=== PATIENT | male | born 1965 | race Caucasian/White ===

== ENCOUNTER 2017-08-12 07:54 | Day surgery (SDC) | payer BC, OTHER ==
[2017-08-12] MEDS: NS 1,000 ML IV (08:08)
[2017-08-12] MEDS ORDERED: PROPOFOL 200 MG/20 ML VIAL As Ordered (08:41)
[2017-08-12] MEDS ORDERED: LIDOCAINE 2% INJ 100 MG/5 ML SDV (FOR ANES.) As Ordered (08:41)
== END 2017-08-12 09:30 | disposition home or self-care (01) ==
LOC: M OPP 07:54
DX: Z12.11 Encounter for screening for malignant neoplasm of colon (principal); D12.5 Benign neoplasm of sigmoid colon; Z80.42 Family history of malignant neoplasm of prostate
CPT/HCPCS: 45385

== ENCOUNTER → 2019-10-01 | Outpatient (REF) | payer OTHER ==
[2019-10-01 15:44] LABS: INFLUENZA A AMPLIFICATION POSITIVE (NEGATIVE); INFLUENZA B AMPLIFICATION NEGATIVE (NEGATIVE)
== END ==
LOC: M LAB REF 10:40
PROVIDERS: ATTEND Physician Assistant Medical
DX: R50.9 Fever, unspecified (principal)

== ENCOUNTER → 2020-05-29 | Outpatient (REF) | payer OTHER | LOC: M LAB REF 12:37 | PROVIDERS: ATTEND Nurse Practitioner Family | DX: N39.0 Urinary tract infection, site not specified (principal) ==

== ENCOUNTER → 2020-10-17 | Outpatient (CLI) | payer SELFPAY | LOC: M LABSMTC 10:18 | PROVIDERS: ATTEND Pediatrics | DX: Z11.52 Encounter for screening for COVID-19 (principal) ==

== ENCOUNTER → 2021-11-14 | Outpatient (CLI) | payer BC, OTHER ==
[~2021-11-14] MED LIST: GASTROGRAFIN SOLUTION 30ML (Q9963) As Ordered ONE; ISOVUE-370 76% 100ML VIAL As Ordered ONE
== END ==
LOC: M RAD 08:07
PROVIDERS: ATTEND Nurse Practitioner Family
DX: R10.9 Unspecified abdominal pain (principal)
CPT/HCPCS: 74178; Q9963; Q9967

== ENCOUNTER → 2021-12-20 | Outpatient (CLI) | payer BC, OTHER | LOC: M LABSMTC 10:35 | PROVIDERS: ATTEND Anesthesiology | DX: Z01.812 Encounter for preprocedural laboratory examination (principal); Z20.822 Contact with and (suspected) exposure to COVID-19 ==

== ENCOUNTER 2021-12-25 10:00 | Day surgery (SDC) | payer BC, OTHER ==
[~2021-12-25] VITALS: Ht 175.3 cm; Wt 80.3 kg
[~2021-12-25 10:00] MED LIST changes: -GASTROGRAFIN SOLUTION 30ML (Q9963) As Ordered ONE; -ISOVUE-370 76% 100ML VIAL As Ordered ONE; +NS 1,000 ML IV ONE
[2021-12-25] MEDS ORDERED: propofoL 200 MG/20 ML VIAL As Ordered ONE (11:14)
[2021-12-25 11:41] VITALS: BP 100/64
== END 2021-12-25 11:45 | disposition home or self-care (01) ==
LOC: M OPP 10:00
PROVIDERS: ATTEND Surgery
DX: Z12.11 Encounter for screening for malignant neoplasm of colon (principal); Z86.010 Personal history of colon polyps; K64.1 Second degree hemorrhoids

== ENCOUNTER → 2022-01-16 | Outpatient (CLI) | payer BC, OTHER | LOC: M RAD 12:52 | PROVIDERS: ATTEND Surgery | DX: K40.90 Unilateral inguinal hernia, without obstruction or gangrene, not specified as recurrent (principal) ==

== ENCOUNTER → 2023-04-02 | Outpatient (CLI) | payer BC, OTHER ==
[~2023-04-02] MED LIST changes: +E-Z-GAS II EFFERVESCENT PACKET (SODIUM BICARB./CITRIC ACID/SIMETHICONE) As Ordered ONE; +E-Z-HD 98% w/w 340GM SUSP BTL As Ordered ONE; +E-Z-PAQUE 96% w/w SUSP 176GM BTL As Ordered ONE; -NS 1,000 ML IV ONE
== END ==
LOC: M RAD 08:22
PROVIDERS: ATTEND Nurse Practitioner Family
DX: R13.10 Dysphagia, unspecified (principal)